=== PATIENT | female | born 1995 | race Caucasian/White ===

== ENCOUNTER 2025-03-29 12:58 | Emergency (ER) | payer OTHER ==
[~2025-03-29] VITALS: Ht 167.6 cm; Wt 104.0 kg
[2025-03-29 13:34] VITALS: O2SAT 97
[2025-03-29] MEDS: IBUPROFEN 600MG TABLET PO ONE (15:07)
[2025-03-29 15:18] LABS: BASOPHILS % 0.8 % (0.0-2.0); EOSINOPHILS % 2.7 % (0.0-5.0); HEMATOCRIT. 39.4 % (36.0-48.0); HEMOGLOBIN. 12.8 g/dL (12.0-16.0); LYMPHOCYTES % 31.2 % (20.0-50.0); MEAN PLATELET VOLUME 8.7 fl (7.4-10.4); MONOCYTES % 7.8 % (2.0-8.0); NEUTROPHILS % 57.5 % (40.0-76.0); PLATELET 307 x1000/uL (130-400); RED BLOOD CELL COUNT 5.05 mill/uL (4.2-5.4); RED CELL DISTRIBUTION WIDTH 16.0 % (11.6-14.6)
[2025-03-29 15:33] LABS: CREATININE 0.8 mg/dL (0.6-1.0)
[2025-03-29 15:34] LABS: UREA NITROGEN BLOOD 9 mg/dL (9-23)
[2025-03-29 15:35] LABS: ASPARTATE AMINOTRANSFERASE 21 IU/L (<34)
[2025-03-29 15:36] LABS: BILIRUBIN TOTAL 0.2 mg/dL (0.1-1.0); PROTEIN TOTAL 8.3 g/dL (6.0-8.3)
[2025-03-29] MEDS ORDERED: T3 PO (16:06)
[2025-03-29 16:42] VITALS: BP 127/89; PULSE 99; RESP 16; TEMP 37.1; O2SAT 99
== END 2025-03-29 16:45 | disposition home or self-care (01) ==
LOC: ER 12:58
DX: H66.91 Otitis media, unspecified, right ear (principal); Z79.899 Other long term (current) drug therapy; Z98.890 Other specified postprocedural states; Z79.2 Long term (current) use of antibiotics
CPT/HCPCS: 36415; 70480; 80053; 85025; 99284